=== PATIENT | male | born 1995 | race Caucasian/White ===

== ENCOUNTER 2017-05-16 03:11 | Emergency (ER) | payer OTHER ==
[~2017-05-16] VITALS: Ht 172.7 cm; Wt 65.8 kg
[2017-05-16 03:15] VITALS: Ht 172.7 cm; Wt 65.8 kg
--- NOTE | 2017-05-16 03:28 | ERD ---
ER Documentation Chief Complaint Chief Complaint cough w/ fever x 3 days HPI 2-year-old male presents here in emergency department for complaints of cough and fever for 2 days. Patient has been having dry cough, does not cough up any phlegm or blood. Patient does not have any shortness of breath or wheezing. Patient has been having runny nose nasal congestion clear nasal discharge. Patient does not complain of sore throat or ear pain. Patient took Robitussin at home to help with symptoms with only mild relief. She does not have any sick contacts. ROS All systems reviewed and are negative except as per history of present illness. Medications Home Meds Active Scripts Acetaminophen* (Tylophen*) 500 Mg Capsule, 1 CAP PO Q6H Y for PAIN AND OR ELEVATED TEMP, #20 CAP Prov:VIC XAVIER NP 05/16/17 Prednisone* (Prednisone*) 50 Mg Tablet, 50 MG PO DAILY for 5 Days, TAB Prov:VIC XAVIER NP 05/16/17 Albuterol Sulfate* (Proair HFA*) 8.5 Gm Hfa.aer.ad, 2 PUFF INH Q4H Y for WHEEZING AND SOB, #1 INHALER Prov:VIC XAVIER NP 05/16/17 Ibuprofen* (Motrin*) 600 Mg Tab, 600 MG PO Q6H Y for PAIN AND OR ELEVATED TEMP, #30 TAB Prov:VIC XAVIER NP 05/16/17 Azithromycin* (Zithromax*) 250 Mg Tablet, 250 MG PO .ZPACK DIRECTED, #6 TAB TAKE 500 MG (2 TABS) THE FIRST DAY THEN 250 MG (1 TAB) DAYS 2-5 Prov:VIC XAVIER NP 05/16/17 Reported Medications [none] Unknown Strength No Conflict Check 05/16/17 Allergies Allergies: Coded Allergies: No Known Allergy (Unverified , 05/16/17) PMhx/Soc Medical and Surgical Hx: pt denies Medical Hx, pt denies Surgical Hx FmHx Family History: No coronary disease, No diabetes, No other Physical Exam Vitals Vital Signs Date Time Temp Pulse Resp B/P Pulse Ox O2 Delivery O2 Flow Rate FiO2 05/16/17 04:24 99.4 111 18 123/63 98 Room Air 05/16/17 03:40 102.5 130 20 134/72 98 Room Air 05/16/17 03:15 101.8 131 20 126/76 98 Physical Exam GENERAL: The patient is well developed and appropriate for usual state of health, in no apparent distress. CHEST: Clear to auscultation bilaterally. There are no rales, wheezes or rhonchi. HEART: Regular rate and rhythm. No murmurs, clicks, rubs or gallops. No S3 or S4. ABDOMEN: Soft, nontender and nondistended. Good bowel sounds. No rebound or guarding. No gross peritonitis. No gross organomegaly or masses. No Araujo sign or McBurney point tenderness. BACK: No midline or flank tenderness. EXTREMITIES: Equal pulses bilaterally. There is no peripheral clubbing, cyanosis or edema. No focal swelling or erythema. Full range of motion. Grossly neurovascularly intact. NEURO: Alert and oriented. Cranial nerves 2-12 intact. Motor strength in all 4 extremities with 5/5 strength. Sensation grossly intact. Normal speech and gait. SKIN: There is no apparent rash or petechia. The skin is warm and dry. HEMATOLOGIC AND LYMPHATIC: There is no evidence of excessive bruising or lymphedema. No gross cervical, axillary, or inguinal lymphadenopathy. Results 24 hrs Current Medications Medications (Trade) Dose Ordered Sig/Kyra Route PRN Reason Start Time Stop Time Status Last Admin Dose Admin Ibuprofen (Motrin) 600 mg ONCE ONCE PO 05/16/17 03:30 05/16/17 03:31 DC 05/16/17 03:32 Acetaminophen (Tylenol Tab) 650 mg ONCE ONCE PO 05/16/17 03:30 05/16/17 03:31 DC 05/16/17 03:32 Patient was given medicines for fever control here in the emergency department. After treatment, patient temperature improved and lower. Patient appears well and is hemodynamically stable. PROCEDURE: XR Chest. CLINICAL INDICATION: Cough times 3 days, fever TECHNIQUE: Single frontal view of the chest was obtained COMPARISON: None FINDINGS: The heart and mediastinum are within normal limits. There is dense consolidation in the right upper lobe consistent with pneumonia. There is no definite pleural effusion or pneumothorax. IMPRESSION: Dense consolidation in the right upper lobe consistent with pneumonia. RPTAT: HJES .Cal Jaramillo MD, MD Date Time Electronically viewed and signed by .Cal Jaramillo MD, MD on 05/16/2017 04:01 .S/ CC: VIC XAVIER MASK FORMER Procedures/MDM Medical Decision Making: Patient symptoms are most likely consistent with pneumonia seen in the x-ray. OutPatient management is appropriate at this time since patient O2 saturation is normal and patient doesnt show any respiratory distress. Patients chest xray doesnt show infiltrates or any other cardiopulmonary emergencies at this time. There is low suspicion for other cardiopulmonary emergencies at this time such as CHF, Pulmonary Embolism, Pneumothorax, Aortic Aneurysm or any other cardiopulmonary emergencies at this time. There is low suspicion for sepsis. Patient appears well and is hemodynamically stable. Fever is controlled with medicines. Disposition: Home. Condition: Stable Prescriptions: Azithromycin, prednisone, guaifenesin DM, albuterol ibuprofen Tylenol Instructions: Patient is advised to take medications as prescribed. Patient is advised to rest. Patient advised to increase fluid intake, do humidifier at home and if possible, do salt water gargles. Patient is advised that if symptoms are worse, shortness of breath, uncontrolled fever, stridor, vomiting, worst signs and symptoms to return to emergency department immediately. Otherwise, patient is advised to follow up with primary doctor in 5-7 days. Disclaimer: Inadvertent spelling and grammatical errors are likely due to EHR/ dictation software use and do not reflect on the overall quality of patient care. Also, please note that the electronic time recorded on this note does not necessarily reflect the actual time of the patient encounter. Departure Diagnosis: Primary Impression: Pneumonia Pneumonia type: due to unspecified organism Laterality: right Lung location : upper lobe of lung Qualified Code: J18.1 - Pneumonia of right upper lobe due to infectious organism Condition: Stable Patient Instructions: Pneumonia (Adult) Additional Instructions: Patient is advised to take medications as prescribed. Patient is advised to rest. Patient advised to increase fluid intake, do humidifier at home and if possible, do salt water gargles. Patient is advised that if symptoms are worse, shortness of breath, uncontrolled fever, stridor, vomiting, worst signs and symptoms to return to emergency department immediately. Otherwise, patient is advised to follow up with primary doctor in 5-7 days. VIC XAVIER NP May 16, 2017 03:28
[2017-05-16] MEDS ORDERED: IBUPROFEN 600 MG TAB PO ONE (03:30)
[2017-05-16] MEDS ORDERED: ACETAMINOPHEN 325 MG TAB PO ONE (03:30)
--- NOTE | 2017-05-16 04:01 | RADRPT ---
PROCEDURE: XR Chest. CLINICAL INDICATION: Cough times 3 days, fever TECHNIQUE: Single frontal view of the chest was obtained COMPARISON: None FINDINGS: The heart and mediastinum are within normal limits. There is dense consolidation in the right upper lobe consistent with pneumonia. There is no definite pleural effusion or pneumothorax. IMPRESSION: Dense consolidation in the right upper lobe consistent with pneumonia. RPTAT: HJES .Cal Jaramillo MD, MD Date Time Electronically viewed and signed by .Cal Jaramillo MD, MD on 05/16/2017 04:01 .S/
[2017-05-16] MEDS ORDERED: ACET500C5 PO (04:08)
[2017-05-16] MEDS ORDERED: IBUP-1542 PO (04:08)
[2017-05-16] MEDS ORDERED: AZIT250T94 PO (04:08)
[2017-05-16] MEDS ORDERED: ALBU8.5H3 INH (04:08)
[2017-05-16] MEDS ORDERED: PRED50TA PO (04:08)
[2017-05-16 04:24] VITALS: BP 123/63; PULSE 111; RESP 18; TEMP 99.4
== END 2017-05-16 04:15 | disposition home or self-care (01) ==
LOC: FTE 03:11
DX: J18.1 Lobar pneumonia, unspecified organism (principal)
CPT/HCPCS: 71010; Z7502; Z7610

== ENCOUNTER 2017-05-21 18:13 | Emergency (ER) | payer OTHER ==
[~2017-05-21] VITALS: Ht 167.6 cm; Wt 60.0 kg
[~2017-05-21 18:13] MED LIST: ACET500C5 PO; ALBU8.5H3 INH; AZIT250T94 PO; IBUP-1542 PO; PRED50TA PO
[2017-05-21 18:15] VITALS: Ht 167.6 cm; Wt 60.0 kg
[2017-05-21] MEDS ORDERED: CEFTRIAXONE 1 GM/50 ML (PMX) 50 ML IVPB STA (18:32)
[2017-05-21] MEDS ORDERED: SOD CHLORIDE 0.9% 1,800 ML IV ONE (18:32)
[2017-05-21] MEDS ORDERED: DOXYCYCLINE 100 MG TAB PO STA (18:32)
[2017-05-21] MEDS ORDERED: ACETAMINOPHEN 325 MG TAB PO ONE (19:00)
[2017-05-21 19:09] LABS: BASOPHILS % 0.3 % (0.0-2.0); EOSINOPHILS % 0.3 % (0.0-7.0); HEMATOCRIT 42.2 % (42.0-52.0); HEMOGLOBIN 13.9 g/dl (14.0-18.0); LYMPHOCYTES # 1.3 10^3/ul (0.8-2.9); LYMPHOCYTES % 14.2 % (15.0-51.0); MEAN CORPUSCULAR HEMOGLOBIN 26.8 pg (29.0-33.0); MEAN CORPUSCULAR HGB CONC 32.9 g/dl (32.0-37.0); MEAN CORPUSCULAR VOLUME 81.5 fl (82.0-101.0); MEAN PLATELET VOLUME 9.4 fl (7.4-10.4); MONOCYTE # 0.6 10^3/ul (0.3-0.9); MONOCYTES % 6.9 % (0.0-11.0); NEUTROPHIL # 7.2 10^3/ul (1.6-7.5); NEUTROPHILS % 77.7 % (39.0-77.0); PLATELET COUNT 388 10^3/UL (140-415); RED BLOOD COUNT 5.18 10^6/ul (4.70-6.10); RED CELL DISTRIBUTION WIDTH 13.1 % (11.5-14.5); WHITE BLOOD COUNT 9.3 10^3/ul (4.8-10.8)
[2017-05-21] MEDS ORDERED: ONDANSETRON (1 MG/1.25 ML PO SYG) PO STA (19:28)
[2017-05-21 20:18] LABS: CALCIUM 9.1 mg/dl (8.4-10.2); CREATININE 1.02 mg/dl (0.61-1.24); POTASSIUM 3.3 mmol/L (3.5-5.1)
--- NOTE | 2017-05-21 20:46 | RADRPT ---
PROCEDURE: XR Chest. CLINICAL INDICATION: Shortness of breath TECHNIQUE: Frontal chest x-ray was obtained. COMPARISON: Chest x-ray May 16 FINDINGS: Heart is not enlarged. Mediastinum is not widened. No hilar masses seen. There is persistent dense r ight upper lobe consolidation. No effusion or pneumothorax is seen. IMPRESSION: Right lung pneumonia. No change. .Alexi Galloway MD, MD Date Time Electronically viewed and signed by .Alexi Galloway MD, on 05/21/2017 20:46 .A/
[2017-05-21] MEDS ORDERED: AMOX1TAB10 PO (20:47)
[2017-05-21] MEDS ORDERED: IBUP-1542 PO (20:47)
[2017-05-21 20:48] VITALS: BP 115/53; PULSE 100; RESP 17; TEMP 100.1
--- NOTE | 2017-05-21 20:50 | ERD ---
ER Documentation Chief Complaint Chief Complaint pt bib self with c/o cough for 2 days, HPI 22-year-old male presents with fever and cough for the last week. He was seen 5 days ago and diagnosed with pneumonia with consolidation of the right upper lobe. He has persistent fevers and cough. He completed his course of Zithromax. Denies vomiting, abdominal pain, chest pain or shortness of breath. ROS All systems reviewed and are negative except as per history of present illness. Medications Home Meds Active Scripts Ibuprofen* (Motrin*) 600 Mg Tab, 600 MG PO Q6, #15 TAB Prov:CHOLO ARELLANO MD 05/21/17 Amoxicillin/Potassium Clav (Amox-Clav 875-125 mg Tablet) 875-125 mg Tab, 1 TAB PO BID for 7 Days, #14 TAB Prov:CHOLO ARELLANO MD 05/21/17 Acetaminophen* (Tylophen*) 500 Mg Capsule, 1 CAP PO Q6H Y for PAIN AND OR ELEVATED TEMP, #20 CAP Prov:VIC XAVIER NP 05/16/17 Prednisone* (Prednisone*) 50 Mg Tablet, 50 MG PO DAILY for 5 Days, TAB Prov:VIC XAVIER NP 05/16/17 Albuterol Sulfate* (Proair HFA*) 8.5 Gm Hfa.aer.ad, 2 PUFF INH Q4H Y for WHEEZING AND SOB, #1 INHALER Prov:VIC XAVIER NP 05/16/17 Ibuprofen* (Motrin*) 600 Mg Tab, 600 MG PO Q6H Y for PAIN AND OR ELEVATED TEMP, #30 TAB Prov:VIC XAVIER NP 05/16/17 Azithromycin* (Zithromax*) 250 Mg Tablet, 250 MG PO .ZPACK DIRECTED, #6 TAB TAKE 500 MG (2 TABS) THE FIRST DAY THEN 250 MG (1 TAB) DAYS 2-5 Prov:VIC XVAIER NP 05/16/17 Reported Medications [none] Unknown Strength No Conflict Check 05/16/17 Allergies Allergies: Coded Allergies: No Known Allergy (Unverified , 05/16/17) PMhx/Soc Medical and Surgical Hx: pt denies Medical Hx, pt denies Surgical Hx Hx Alcohol Use: No Hx Substance Use: No Hx Tobacco Use: No Smoking Status: Never smoker Physical Exam Vitals Vital Signs Date Time Temp Pulse Resp B/P Pulse Ox O2 Delivery O2 Flow Rate FiO2 05/21/17 18:15 103.2 122 18 133/82 98 Physical Exam Const: [] Alert, [id number]. Head: Atraumatic Eyes: Normal Conjunctiva ENT: Normal External Ears, Nose and Mouth. Neck: Full range of motion..~ No meningismus. Resp: Clear to auscultation bilaterally Cardio: Regular rate and rhythm, no murmurs Abd: Soft, non tender, non distended. Normal bowel sounds Skin: No petechiae or rashes Back: No midline or flank tenderness Ext: No cyanosis, or edema Neur: Awake and alert Psych: Normal Mood and Affect Result Diagram: 05/21/17185405/21/171854 Results 24 hrs Laboratory Tests Test 05/21/17 18:55 White Blood Count 9.310^3/ul Red Blood Count 5.1810^6/ul Hemoglobin 13.9g/dl Hematocrit 42.2% Mean Corpuscular Volume 81.5fl Mean Corpuscular Hemoglobin 26.8pg Mean Corpuscular Hemoglobin Concent 32.9g/dl Red Cell Distribution Width 13.1% Platelet Count 46458^3/UL Mean Platelet Volume 9.4fl Neutrophils % 77.7% Lymphocytes % 14.2% Monocytes % 6.9% Eosinophils % 0.3% Basophils % 0.3% Nucleated Red Blood Cells % 0.0/100WBC Neutrophils # 7.210^3/ul Lymphocytes # 1.310^3/ul Monocytes # 0.610^3/ul Eosinophils # 0.010^3/ul Basophils # 0.010^3/ul Nucleated Red Blood Cells # 0.010^3/ul Sodium Level 142mmol/L Potassium Level 3.3mmol/L Chloride Level 101mmol/L Carbon Dioxide Level 29mmol/L Anion Gap 15 Blood Urea Nitrogen 11mg/dl Creatinine 1.02mg/dl Glucose Level 82mg/dl Lactic Acid Level 1.6mmol/L Calcium Level 9.1mg/dl Current Medications Medications (Trade) Dose Ordered Sig/Kyra Route PRN Reason Start Time Stop Time Status Last Admin Dose Admin Ceftriaxone Sodium (Rocephin) 50 ml @ 100 mls/hr ONCE STAT IVPB 05/21/17 18:32 05/21/17 19:01 DC 05/21/17 19:05 Doxycycline Hyclate 100 mg 100 mg ONCE STAT PO 05/21/17 18:32 05/21/17 18:35 DC 05/21/17 19:04 Sodium Chloride (NS) 1,800 ml @ 0 mls/hr Q0M ONCE IV 05/21/17 18:32 05/21/17 18:35 DC 05/21/17 18:50 Acetaminophen (Tylenol Tab) 650 mg ONCE ONCE PO 05/21/17 19:00 05/21/17 19:01 DC 05/21/17 18:51 Ondansetron HCl (Zofran (Ped)) 4 mg ONCE STAT PO 05/21/17 19:28 05/21/17 19:29 DC Procedures/MDM Chest X-ray 1V Interpreted by me: Soft Tissue: No acute abnormalities Bones: No acute abnormalities Mediastinum/Cardiac Silhouette/Lungs: [No acute abnormalities] impression stable right upper lobe consolidation CBC is normal. CMP shows no acute abnormalities of potassium 3.3. Patient initially was given 30 cc/kg IV normal saline, Rocephin 1 g IV and doxycycline 100 mg by mouth. Blood cultures pending. There is a rectal fever defervesced. Presents with persistent fevers and right upper lobe pneumonia. We will continue antibiotics with Augmentin. Patient shows no evidence of hypoxemia, respiratory distress, tachycardia and fever improved and his normal white blood cell count. He may have concurrent viral URI in addition to his pneumonia. He will be discharged home with instructions to recheck for fever over additional 48 hours, sooner for shortness of breath, vomiting, abdominal pain, new or worsening symptoms. The patient was stable with no new complaints during the ER course. Clinically, there is no current evidence to suggest meningitis, sepsis, acute abdomen, , acute coronary syndrome, pulmonary embolism, or any other emergent condition appearing to require further evaluation or hospitalization. The patient should certainly return for any new or worsening symptoms per the aftercare instructions. They should otherwise follow-up with her primary care doctor for reevaluation this week. Departure Diagnosis: Primary Impression: Pneumonia Pneumonia type: due to unspecified organism Laterality: right Lung location : upper lobe of lung Qualified Code: J18.1 - Pneumonia of right upper lobe due to infectious organism Additional Impression: Fever Fever type: unspecified Qualified Code: R50.9 - Fever, unspecified fever cause Condition: Stable Patient Instructions: Fever Control (Adult), Pneumonia (Adult) Additional Instructions: Normal today. We will continue antibiotics. Recheck for fever over additional 40 hours, sooner for pain, shortness breath, blood, new worsening symptoms or primary care doctor this week. CHOLO ARELLANO MD May 21, 2017 20:50
== END 2017-05-21 21:01 | disposition home or self-care (01) ==
LOC: FTE 18:13
DX: J18.1 Lobar pneumonia, unspecified organism (principal)
CPT/HCPCS: 36415; 71010; 80048; 83605; 85025; 87040; 96365; 96366; J0696; J7030; Z7502; Z7610

== ENCOUNTER 2017-06-04 01:38 | Inpatient (IN) | END 2017-06-27 17:00 | disposition home or self-care (01) | DRG 854 ==